=== PATIENT | female | born 1990 | race Two or more races ===

== ENCOUNTER 2023-08-19 22:36 | Emergency (ER) | payer OTHER, SELFPAY ==
--- NOTE | ~2023-08-19 | US_ITS ---
EXAMINATION: US ABDOMEN LIMITED CLINICAL INFORMATION: Upper abdominal pain, question cholecystitis. COMPARISON: None available. TECHNIQUE: Real-time imaging of the right upper quadrant abdominal viscera. FINDINGS: PANCREAS: Visualized pancreas is unremarkable. LIVER: The liver is normal in size. The liver contour is normal. Mildly increased liver parenchymal echogenicity. No focal hepatic lesion. No clear intrahepatic biliary ductal dilatation. GALLBLADDER: There are gallstones present. No gallbladder wall thickening or pericholecystic fluid. COMMON BILE DUCT: Normal in caliber measuring 0.5 cm in diameter. RIGHT KIDNEY: Normal. No hydronephrosis. No renal calculi or focal parenchymal lesions. The kidney measures 10.7 cm in maximum dimension. FREE FLUID: None. US/US abdomen limited IMPRESSION: Cholelithiasis.
[2023-08-19 22:38] VITALS: BP 148/100; PULSE 84; RESP 18; TEMP 36.7; O2SAT 98; BMI 31.6
[2023-08-19 22:53] LABS: MANUAL DIFF FLAG NO
[2023-08-19 22:56] LABS: Basophils Percent Auto 0.4 % (0-2); Eosinophils Absolute Auto 0.1 X10*3/uL (0.0-0.4); Hematocrit 41.3 % (37.0-47.0); Hemoglobin 13.2 g/dl (12.0-16.0); Imm Gran Abs Auto 0.03 X10*3/uL (0.00-0.03); Imm Gran Pct Auto 0.3 % (0.0-0.4); Lymphocytes Absolute Auto 3.7 X10*3/uL (1.2-4.9); Lymphocytes Percent Auto 38.3 % (20-40); Mean Corpuscular Volume 81.3 fL (80.0-98.0); Mean Platelet Volume 9.2 fL (9.4-12.3); Monocytes Absolute Auto 0.9 X10*3/uL (0.1-1.2); Monocytes Percent Auto 9.4 % (2-11); Neutrophils Absolute Auto 4.8 x10*3/uL (2.0-8.3); Neutrophils Percent Auto 50.6 % (45-73); Platelet Count 352 X10*3/uL (160-400); Red Blood Count 5.08 X10*6/uL (4.20-5.50); White Blood Count 9.6 X10*3/uL (4.8-10.8)
--- NOTE | 2023-08-19 23:06 | ED_ITS ---
HPI - Abdominal Pain General Chief Complaint: Abdominal Pain Stated Complaint: Stomach pain/nauseus Time Seen by Provider: 08/19/23 23:06 Source: patient Mode of arrival: ambulatory Limitations: no limitations History of Present Illness HPI narrative: Patient Been nauseated and vomiting all day with upper pain got worse prior to arrival no diarrhea no history of gallstones pain is mostly in epigastric area no history of similar pain in the past no history of gallstones patient had a C- section 3 months ago no other family member sick no history of any bad food intake Related Data Previous Rx's Medication Instructions Recorded ibuprofen 600 mg tablet 600 mg PO Q6H PRN fever or pain 08/20/23 #30 tabs ondansetron 4 mg disintegrating 4 mg PO Q6-8H PRN nausea and 08/20/23 tablet vomiting #7 tabs Allergies Allergy/AdvReac Type Severity Reaction Status Date / Time Sulfa (Sulfonamide Allergy Rash Verified 08/19/23 22:42 Antibiotics) Review of Systems Review of Systems Yes all other systems are reviewed and are negative [facility] [place] Social History Social History Alcohol intake: never Smoked in Last 30 Days: No Use of substances other than those prescribed or required for medical reasons: No Advance Directives: No Advance Directives Information Provided: No Patient : No Physical Exam ED Vital Signs: Vital Signs - 24 hr 08/19/23 22:38 08/19/23 23:57 Temperature 98.0 F Pulse Rate 84 82 Respiratory Rate 18 16 Blood Pressure 148/100 H 116/83 Pulse Oximetry 98 98 Oxygen Delivery Method Room Air Room Air BMI result Body Mass Index 31.6 Appearance: Alert. Oriented X3. Actively vomiting Eyes: No pallor or icterus ENT: Pharynx normal. Oral Mucosa moist Neck: Normal inspection. Neck supple. CVS: Normal heart rate and rhythm. Pulses normal. Respiratory: No respiratory distress. Equal air entry bilateral, no wheezing/rales/rhonchi Abdomen: Soft, tenderness in epigastric area Bowel sounds are present, no mass palpable, no CVA tenderness Skin: Skin warm and dry. Normal skin color. Normal skin turgor. Extremities: No lower extremity edema. No calf tenderness Neuro: Oriented X 3. Medical Decision Making Medical Decision Making MDM Narrative: Patient with nausea vomiting upper abdominal pain possible gastritis/gallstone Labs are stable ultrasound showed multiple gallstones without any obstruction or cholecystitis finding at this time patient is feeling much better will discharge patient home advised to follow with surgeon Differential Diagnosis Differential Diagnoses: The differential diagnosis associated with the presentation includes Acute gastritis/gallstones/cholecystitis Lab Data MDM Lab Attestation statement: I reviewed the patient's lab results. 08/19/23 22:48 08/19/23 22:48 Labs: Lab Results 08/19/23 08/20/23 Range/Units 22:48 00:19 WBC 9.6 (4.8-10.8) X10*3/uL RBC 5.08 (4.20-5.50) X10*6/uL Hgb 13.2 (12.0-16.0) g/dl Hct 41.3 (37.0-47.0) % MCV 81.3 (80.0-98.0) fL MCH 26.0 L (27.0-33.0) pg MCHC 32.0 (31.0-35.0) g/dl RDW 14.0 (11.0-16.0) % Plt Count 352 (160-400) X10*3/uL MPV 9.2 L (9.4-12.3) fL Immature Gran % (Auto) 0.3 (0.0-0.4) % Neut % (Auto) 50.6 (45-73) % Lymph % (Auto) 38.3 (20-40) % [place] % (Auto) 9.4 (2-11) % Eos % (Auto) 1.0 (0-4) % Baso % (Auto) 0.4 (0-2) % Lymph # (Auto) 3.7 (1.2-4.9) X10*3/uL [place] # (Auto) 0.9 (0.1-1.2) X10*3/uL Eos # (Auto) 0.1 (0.0-0.4) X10*3/uL Baso # (Auto) 0.0 (0.0-0.2) X10*3/uL Abs Immat Gran (auto) 0.03 (0.00-0.03) X10*3/uL Absolute Neuts (auto) 4.8 (2.0-8.3) x10*3/uL Absolute Nucleated RBC 0.000 (0.0-0.012) X10*3/uL Nucleated RBC % (auto) 0.0 (0.0-0.2) /100WBC Sodium 141 (135-145) mmol/L Potassium 4.2 (3.3-5.1) mmol/L Chloride 101 (96-108) mmol/L Carbon Dioxide 30 H (22-29) mmol/L Anion Gap 14 (12-20) BUN 14 (9-16) mg/dL Creatinine 0.82 (0.5-1.4) mg/dL Estim Creat Clear Calc 105.7 Estimated GFR > 60 Random Glucose 96 (60-115) mg/dL Calcium 9.9 (8.4-10.2) mg/dL Total Bilirubin 0.2 (0.0-1.0) mg/dL Direct Bilirubin < 0.2 (0.0-0.5) mg/dL AST 28 (5-31) U/L ALT 43 H (0-31) U/L Alkaline Phosphatase 177 H (39-117) U/L Total Protein 8.2 H (6.5-8.0) g/dL Albumin 4.1 (3.5-5.0) g/dL Lipase 30 (8-78) U/L Urine Color Yellow Urine Appearance Clear Urine pH 5.5 (5.0-9.0) Ur Specific [place] >= 1.030 H (1.005-1.025) Urine Protein Trace (Neg-Trace) mg/dL Urine Glucose (UA) Negative (Negative) mg/dL Urine Ketones Trace (Negative) mg/dL Urine Blood Negative (Negative) Urine Nitrite Negative (Negative) Ur Leukocyte Esterase Negative (Negative) Urine RBC 0-2 (0-2) /HPF Urine WBC 0-5 (0-5) /HPF Ur Squamous Epith Cells 3-5 (0-2) /HPF Urine Bacteria None Seen (None Seen) Hyaline Casts 0-2 (0-2) /LPF Urine Test NEGATIVE (NEGATIVE) Independent Interpretation I performed an independent interpretation of an: Ultrasound Interpretation: [address] [address] Ultrasound Report Signed Patient: Shikha Mota MR#: [id number] : 1990 Acct:[id number] Age/Sex: 32 / F ADM Date: 08/19/23 Loc: HO.ED Attending Dr: Ordering Physician: Dylan Richardson MD Date of Service: 08/19/23 Procedure(s): US abdomen limited Accession Number(s): [id number] cc: Cash Taylor MD; Dylan Richardson MD~ EXAMINATION: US ABDOMEN LIMITED CLINICAL INFORMATION: Upper abdominal pain, question cholecystitis. COMPARISON: None available. TECHNIQUE: Real-time imaging of the right upper quadrant abdominal viscera. FINDINGS: PANCREAS: Visualized pancreas is unremarkable. LIVER: The liver is normal in size. The liver contour is normal. Mildly increased liver parenchymal echogenicity. No focal hepatic lesion. No clear intrahepatic biliary ductal dilatation. GALLBLADDER: There are gallstones present. No gallbladder wall thickening or pericholecystic fluid. COMMON BILE DUCT: Normal in caliber measuring 0.5 cm in diameter. RIGHT KIDNEY: Normal. No hydronephrosis. No renal calculi or focal parenchymal lesions. The kidney measures 10.7 cm in maximum dimension. FREE FLUID: None. US/US abdomen limited IMPRESSION: Cholelithiasis. Radiology Impression Discussion of test interpretation with radiology: I have reviewed the radiologist's reading. Medications Administered Discontinued Medications Generic Name Dose Route Start Last Admin Trade Name Freq PRN Reason Stop Dose Admin Sodium Chloride 1,000 mls @ 999 mls/hr 08/19/23 23:10 08/20/23 01:01 Ns IV 08/20/23 00:10 Infused .Q1H1M ONE Infusion Morphine Sulfate 4 mg 08/19/23 23:10 08/19/23 23:59 Morphine Sulfate 4 Mg/Ml Cartridge IVPUSH 08/19/23 23:11 Not Given ONCE ONE Protocol Ondansetron HCl 4 mg 08/19/23 23:10 08/19/23 23:57 Ondansetron Hcl 4 Mg/2 Ml Vial IVPUSH 08/19/23 23:11 4 mg ONCE ONE Administration Discharge Plan Discharge Clinical Impression: Cholelithiasis, Vomiting Patient Disposition: Home, Self-Care Instructions: Gallstones (ED), Acute Nausea and Vomiting (ED) Additional Instructions: Drink plenty of fluids Avoid fatty foods Take Tylenol/ibuprofen for pain Follow-up with surgeon Report to ER if recurrence of pain Prescriptions: New ibuprofen 600 mg tablet 600 mg PO Q6H PRN (Reason: fever or pain) Qty: 30 0RF ondansetron 4 mg tablet,disintegrating 4 mg PO Q6-8H PRN (Reason: nausea and vomiting) Qty: 7 0RF Referrals: Aiedn Clark MD [Physician] - 1 week
[2023-08-19 23:10] LABS: Alanine Aminotransferase 43 U/L (0-31); Albumin Level 4.1 g/dL (3.5-5.0); Alkaline Phosphatase 177 U/L (39-117); Anion Gap 14 (12-20); Aspartate Amino Transferase 28 U/L (5-31); Bilirubin Direct < 0.2 mg/dL (0.0-0.5); Bilirubin Total 0.2 mg/dL (0.0-1.0); Blood Urea Nitrogen 14 mg/dL (9-16); Calcium 9.9 mg/dL (8.4-10.2); Carbon Dioxide 30 mmol/L (22-29); Chloride 101 mmol/L (96-108); Creatinine Clr Calc Pharmacy 105.7; Estimated Glomerular Filt Rate > 60; Glucose Random 96 mg/dL (60-115); Lipase 30 U/L (8-78); Potassium 4.2 mmol/L (3.3-5.1); Sodium 141 mmol/L (135-145); Total Protein 8.2 g/dL (6.5-8.0)
[2023-08-19 23:57] VITALS: BP 116/83; PULSE 82; RESP 16; O2SAT 98
[2023-08-19] MEDS: 0.9 % Sodium Chloride 1,000 ML 999 ML IV (23:57)
[2023-08-19] MEDS: ondansetron HCL 4 MG/2 ML VIAL IVPUSH (23:57)
[2023-08-20 00:31] LABS: Appearance Urine Clear; Color Urine Yellow; Glucose Urine UA Negative (Negative); Leukocyte Esterase Urine Negative (Negative); Nitrite Urine Negative (Negative); PH 5.5 (5.0-9.0); Specific Gravity - Urine >= 1.030 (1.005-1.025); Urine Blood Negative (Negative); Urine Ketones Trace mg/dL (Negative); Urine Protein Trace mg/dL (Neg-Trace)
[2023-08-20 00:32] LABS: UPreg QC Valid YES; Urine Pregnancy NEGATIVE (NEGATIVE)
[2023-08-20 00:33] LABS: Bacteria Urine None Seen (None Seen); Hyaline Casts Urine 0-2 /LPF (0-2); RBC Urine 0-2 /HPF (0-2); WBC Urine 0-5 /HPF (0-5)
--- NOTE | 2023-08-20 00:34 | PC.NURSE ---
Pt A&Ox4, reports 2/10 RUQ ABD pain, N/V today. States pain worsens with eating. IV line established meds given per OCT. Pt refused pain medication states she is breast feeding.
[2023-08-20] MEDS: Ketorolac Tromethamine 30 MG/ML VIAL IVPUSH (01:12)
== END 2023-08-20 01:20 | disposition home or self-care (01) ==
PROVIDERS: Emergency Provider Internal Medicine; PCP Internal Medicine
DX: K80.20 Calculus of gallbladder without cholecystitis without obstruction (principal); R11.2 Nausea with vomiting, unspecified; R10.2 Pelvic and perineal pain; Z79.899 Other long term (current) drug therapy
CPT/HCPCS: 36415; 76705; 80053; 81001; 81025; 82248; 83690; 85025; 96361; 96374; 96375; 99284; 99285; J1885; J2405

== ENCOUNTER 2023-08-20 13:54 | Outpatient (AMB) | payer OTHER, SELFPAY ==
--- NOTE | 2023-08-20 13:57 | A.OFFVIS_ITS ---
Intake Vital Signs 08/20/23 14:03 Height 5 ft 5 in Weight 194 lb BMI 32.3 BP 103/61 Blood Pressure Location Rt brachial Position Sitting Pulse 70 Intake Visit Reasons: gallstones Intake Note: This patient presents for an assessment for Cholelithiasis. Patient c/o; reports nausea and vomiting, reports stabbing pains, reports unable to eat, reports recently had a baby and is breast feeding needs to be able to eat to increase breast milk supply, reports one episode where she felt like she was going to pass out due to pain. Bookstore Clerk Required: No Accompanied by: Spouse Allergies Sulfa (Sulfonamide Antibiotics) Allergy (Verified 08/20/23 14:09) Rash Medication List - Last Reviewed 08/20/23 by JAMIE Moreno ibuprofen 600 mg PO Q6H PRN ondansetron 4 mg PO Q6-8H PRN vit [id number] 27 mg iron- 800 mcg ( Vitamin) 1 tab PO DAILY HPI gallstones HPI Details [age] year old female referred for gallstones. She apparently went to the ER last night because of epigastric pain and nausea. This improved on his own while she was in the emergency room so she was discharged from the ER. She does describe the pain last night as being on the right upper quadrant as well, radiating to the right shoulder and the back. She had an ultrasound done showing gallstones without cholecystitis. Her WBC was normal. Her LFTs were unremarkable She does state that she continues to have some degree of pain and this gets worse with meals. She had delivered her baby 3 months ago. This was done by a because of the size of the baby and breech presentation at that time. She says she had gestational diabetes but this has improved since that time. ON LICENSE OF [facility] Medical History (Updated 08/20/23 @ 14:15 by Aiden Clark MD) Cholelithiasis Surgical History (Updated 08/20/23 @ 14:18 by Aiden Clark MD) Status post No pertinent past surgical history Social History Alcohol intake: never Patient Tobacco Use Status: Never used Tobacco Review of Systems Const Denies chills and Denies fever(s) Card Denies chest pain, Denies dyspnea and Denies dyspnea on exertion Resp Denies cough, Denies dyspnea and Denies dyspnea on exertion GI Denies hematochezia and Denies change in bowel habits Denies hematuria Musc Denies back pain and Denies limited range of motion Neuro Denies focal weakness and Denies convulsions Psych Denies depression and Denies mood swings Physical Exam Vital Signs: Last Vital Signs Pulse 70 08/20/23 14:03 BP 103/61 08/20/23 14:03 BMI result Body Mass Index 32.3 Const General: comfortable and no acute distress Orientation/consciousness: patient oriented x3 Neck Neck: Yes no lymphadenopathy Resp Auscultation: clear to auscultation bilaterally Cardio Rhythm: regular rhythm GI Other: No Newton's sign, mild right upper quadrant tenderness noted Palpation (GI): Soft to palpation, Tenderness to palpation present (GI) and no guarding Neuro General: patient oriented x3 Assessment & Plan Assessment & Plan (1) Cholelithiasis: Code(s): K80.20 - Calculus of gallbladder without cholecystitis without obstruction Plan: She went to the ER last night because of epigastric pain, right upper quadrant pain along with nausea and vomiting. Her ultrasound does show gallstones without cholecystitis . Her LFTs were normal. She had no leukocytosis. She says that she continues to have pain whenever she eats and has had poor oral intake since last night. I reviewed with her the option of proceeding with cholecystectomy. I described the technique of laparoscopic cholecystectomy as well as possible open cholecystectomy. I discussed the risks including but not limited to bleeding, infections, injury to other organs including bowel, liver and the bile ducts, bile leak, retained stones, as well as the benefits and alternatives. In view of her persistent symptoms, we have added her onto the OR schedule for tomorrow. She wants to proceed. Coding Level of Care Code New Pt Level 3 (92987) Diagnoses Cholelithiasis K80.20
[2023-08-20 14:03] VITALS: BP 103/61; PULSE 70; BMI 32.3
== END 2023-08-20 14:12 | disposition home or self-care (01) ==
PROVIDERS: PCP Internal Medicine; Visit Provider Surgery
DX: K80.20 Calculus of gallbladder without cholecystitis without obstruction (principal)
CPT/HCPCS: 99203

== ENCOUNTER → 2023-08-20 13:54 | Outpatient (BNVA) | payer OTHER, SELFPAY | PROVIDERS: PCP Internal Medicine; Visit Provider Surgery | DX: K80.20 Calculus of gallbladder without cholecystitis without obstruction (principal) | CPT/HCPCS: 99202 ==

== ENCOUNTER 2023-08-21 12:10 | Day surgery (SDC) | payer OTHER, SELFPAY ==
[2023-08-21] VITALS (12 sets, daily range): BP systolic 108–154; BP diastolic 48–86; PULSE 60–84; RESP 14–25; TEMP 36.4–36.6; O2SAT 95–99; BMI 32.5
[2023-08-21] MEDS: Lactated Ringers 1,000 ML 80 ML IVCONT (12:41)
--- NOTE | 2023-08-21 13:21 | MHC.SHP ---
Pre-Procedural Eval Section A Date of Service: 08/21/23 The patient is an INPATIENT: No Changes since office visit: No Cold of Flu in the past 2 weeks, No New Medical Problems, No Changes in Medication and No Patient answered all questions The History & Physical has been completed within 30 days and I have reviewed it.: Yes Section B Chief Complaint: Calculus of gallbladder without cholecystitis with Allergies: Allergies Allergy/AdvReac Type Severity Reaction Status Date / Time Sulfa (Sulfonamide Allergy Rash Verified 08/20/23 14:09 Antibiotics) Plan I have reviewed the history and physical and performed a pertinent physical examination on my patient. No changes have occurred unless specified. Time Spent With Patient Time: Total time managing care of this patient today ____ minutes.
--- NOTE | 2023-08-21 13:59 | HO.ANESPROP2 ---
HPI - Anesthesia Eval Consult details Narrative: 32 f lap cholshanell PMFSH Active Problems Active Problems: All Active Problems (Updated 08/21/23 @ 00:00 by Syed Altamirano) Status post (Acute) Past Medical History Medical History Cholelithiasis Family History Family history of problems with anesthesia: No Surgical History Surgical History Status post No pertinent past surgical history History of Problems with Anesthesia: No Social History Social History Alcohol intake: never Patient Tobacco Use Status: Never used Tobacco Are you DNR?: No Advance Directives: No Advance Directives Information Provided: Yes Nutrition Risks: No Nutritional Risk Meds Allergies Allergy/AdvReac Type Severity Reaction Status Date / Time Sulfa (Sulfonamide Allergy Rash Verified 08/20/23 14:09 Antibiotics) Active Medications: Current Medications Lactated Ringer's (Lr) 1,000 mls @ 80 mls/hr IVCONT .[id number] NOEMY Last Admin: 08/21/23 12:41 Dose: 80 mls/hr Home Medications Medication Instructions Recorded Confirmed Last Taken Type vits no.130-ferrous fum 1 tab PO DAILY 08/20/23 Unknown History 27 mg iron-folic acid 800 mcg tablet ( Vitamin) Exam Height,Weight and Vital Signs: Height 5 ft 5 in Weight 195 lb 3.2 oz Last Vital Signs Temp 97.9 F 08/21/23 12:43 Pulse 72 08/21/23 12:43 Resp 18 08/21/23 12:43 BP 110/73 08/21/23 12:43 Pulse Ox 96 08/21/23 12:43 O2 Del Method Room Air 08/21/23 12:43 Airway Mallampati Class: II TM Dist: >3cm Neck ROM: Full Loose/Missing/Broken Teeth: Yes Assessment and Plan Assessment Anesthesia Assessment: Anesthesia Plan Discussed and Chart Reviewed Final Anesthetic Review Family History of Problems with Anesthesia: No History of Problems with Anesthesia: No NPO: Yes ASA Class: II Final Preanesthetic Review: No Changes in Pt Med Stat, Meds/Allgs Chart Reviewed, Consent Obtained/Reviewed and Anes Risks/Benef Reviewed Patient Risk: Low Procedure Risk: Low Anesthetic Plan Anesthetic Plan: GA Disposition: Standard PACU
--- NOTE | 2023-08-21 14:24 | W.PM.OPN ---
Operative Note Operative Note Date of Service: 08/21/23 Narrative: Preop diagnosis: Gallstones with symptoms Postop diagnosis: The same Procedure: Laparoscopic cholecystectomy Surgeon: Aiden Clark MD veterinary assistant technician: NOHEMI Headley The patient is a 32-year-old female who was seen in the office because of stones. She went to the ER the night before because of severe right upper quadrant pain and tenderness. She was discharged from the ER but she states that she still had significant pain whenever she had oral intake. She saw me in the office yesterday and wanted to proceed with cholecystectomy as soon as possible because of her symptoms. She understood the technique of the planned procedure as well as the risks, benefits, and alternatives She was brought to the operating room. She was placed supine under general anesthesia via endotracheal tube. The abdomen was prepped nd draped in the usual sterile fashion. A surgical time-out was done. The patient received Cefotan 2 g IV preoperatively I made a supraumbilical incision on the skin using blade 15. This was carried down through the full-thickness of the skin and subcutaneous fat down to the fascia. The fascia was incised. The peritoneum was entered. Through this incision a Kezia port was introduced. Pneumoperitoneum was introduced to a pressure of 15 mm hg. From here on the rest of the procedure was done under vision with jasvir 10 mm laparoscope. With laparoscopic visualization I inserted a 5/12 mm port in the epigastric area below the subcostal margin. Two 5 mm ports introduced a small incisions below the subcostal margin along the anterior axillary line and midclavicular line. Graspers were placed through these working ports. The patient was placed in head-up and [id number] position. With laparoscopic visualization, I was able to apply a grasper at the fundus of the gallbladder. This was used to retract the gallbladder cephalad. Another grasper was applied at the pouch of the gallbladder and used to retract the gallbladder laterally. At this point therefore the gallbladder was being retracted in a cephalad and lateral fashion. The gallbladder with did not appear to be inflamed. This was supple. I proceeded to gently dissect the neck of the gallbladder using the [place] dissector to remove fibro areolar tissue until I was able to visualize the cystic duct. I continued to dissect the cystic duct until this was clearly seen. This allowed me to see its confluence with the neck of the gallbladder. By doing so we were also able to achieve a critical view of the hepatocystic triangle. I could see what appeared to be the cystic artery running alongside the cystic duct. There were no other structures in the area. With the confluence of the cystic duct with the neck of the gallbladder confirmed, I proceeded to apply clips on the cystic duct, with 2 clips being applied distally. The cystic duct was transected between clips with Endo scissors. I continued to then define the cystic artery. I then proceeded to apply clips as well in the same fashion. The cystic artery was transected between clips with Endo scissors The gallbladder retracted away from the liver bed. I proceeded to use the electrocautery spatula to divide across the hilum. I incised the peritoneum of the gallbladder at the interface with the liver bed using the electrocautery spatula. Proceeded to define a plane of dissection along this incision using a combination of sharp dissection with electrocautery as well as blunt dissection with the tip. I the gallbladder off of the liver bed along this well-defined plane. We continue with this dissection until the entire gallbladder was completely from the liver bed. There was note of a little bit of bile leak from a tear in the gallbladder wall. I retrieved the gallbladder through an endobag through the umbilical incision. The liver bed was examined carefully. There was no signs of any bleeding or any bile leak I observed all 4 quadrants of the peritoneum. There was no other pathology seen or any evidence of bowel injury. I reabsorbed the area of dissection. Once hemostasis was confirmed, I desufflated the port sites. I removed all ports under vision with the laparoscope. I removed the umbilical port last. The fascia of the umbilical incision was closed with a [id number] Dexon 0 stitch. Skin closure was achieved on all incisions using Polysorb 4-0 subcuticular running sutures. Steri-Strips and dressings were applied. All incisions were infiltrated with Marcaine 0.5% for postop analgesia. The procedure was then completed. The patient tolerated procedure well. There were no immediate complications. Initial and final counts of sponges and instruments were correct. Estimated blood loss was less than 25 cc. The patient was extubated without difficulty and transferred to the recovery room with stable vital signs.
[2023-08-21] MEDS: HYDROmorphone HCl 0.5 MG/0.5 ML SYRINGE 0.25 MG IVPUSH ×4 (14:35→14:50)
[2023-08-21] MEDS: Acetaminophen 1,000 MG/100 ML PIGGYBACK 400 MG IV (14:41)
[2023-08-21] MEDS: oxyCODONE HCl Immed Release 5 MG TABLET PO (14:46)
[2023-08-21] MEDS: HYDROmorphone HCl 0.5 MG/0.5 ML SYRINGE IVPUSH ×2 (14:55→15:20)
[2023-08-21] MEDS: ondansetron HCL 4 MG/2 ML VIAL IVPUSH (15:04)
[2023-08-21] MEDS: LORazepam 2 MG/ML VIAL 1 MG IVPUSH (15:19)
== END 2023-08-21 16:33 | disposition home or self-care (01) ==
PROVIDERS: PCP Internal Medicine; Visit Provider Surgery
PROC: 0FT44ZZ Resection of Gallbladder, Percutaneous Endoscopic Approach (ICD-10-PCS; CPT 47562; principal; 2023-08-21 13:30)
DX: K80.10 Calculus of gallbladder with chronic cholecystitis without obstruction (principal); Z79.899 Other long term (current) drug therapy; Z88.2 Allergy status to sulfonamides
CPT/HCPCS: 47562; 88304; J0131; J1100; J1170; J2060; J2405; J2550; J2704; J2795; J3010

== ENCOUNTER → 2023-08-21 12:10 | Outpatient (BNV) | payer OTHER, SELFPAY | PROVIDERS: PCP Internal Medicine; Visit Provider Surgery | DX: K80.20 Calculus of gallbladder without cholecystitis without obstruction (principal) | CPT/HCPCS: 47562 ==

== ENCOUNTER 2023-09-04 13:01 | Outpatient (AMB) | payer OTHER, SELFPAY ==
--- NOTE | 2023-09-04 13:03 | A.OFFVIS_ITS ---
Intake Vital Signs 09/04/23 13:13 BP 102/59 L Blood Pressure Location Rt brachial Position Sitting Pulse 80 Intake Visit Reasons: S/P lap ridge Intake Note: This patient presents for a post-op assessment status post laparoscopic cholecystectomy. Patient c/o; reports diarrhea, reports hair loss s/p lap ridge not sure if it related to surgery or . Insulation Hoseman Required: No Accompanied by: Self / Same As Patient Allergies Sulfa (Sulfonamide Antibiotics) Allergy (Verified 09/04/23 13:15) Rash HPI S/P lap ridge HPI Details She underwent laparoscopic cholecystectomy last 02/18/2023 as an outpatient. She tolerated procedure well. She currently feels well and denies significant pain. She has good oral intake. [facility] Medical History (Updated 09/04/23 @ 13:19 by Aiden Clark MD) Cholelithiasis Surgical History History of laparoscopic cholecystectomy (~08/21/23) Status post No pertinent past surgical history Social History Alcohol intake: never Comment: counts correct Patient Tobacco Use Status: Never used Tobacco Review of Systems Const Denies chills and Denies fever(s) Card Denies chest pain, Denies dyspnea and Denies dyspnea on exertion Resp Denies cough, Denies dyspnea and Denies dyspnea on exertion GI Denies hematochezia and Denies change in bowel habits Denies hematuria Musc Denies back pain and Denies limited range of motion Neuro Denies focal weakness and Denies convulsions Psych Denies depression and Denies mood swings Physical Exam Vital Signs: Last Vital Signs Pulse 80 09/04/23 13:13 BP 102/59 L 09/04/23 13:13 Const Other: Looks well General: comfortable and no acute distress Eyes Other: Nonicteric GI Other: All incisions are well healed Palpation (GI): Soft to palpation, not firm, nontender and no guarding Assessment & Plan Assessment & Plan (1) Cholelithiasis: Code(s): K80.20 - Calculus of gallbladder without cholecystitis without obstruction Plan Status post laparoscopic cholecystectomy. She is doing very well postoperat ively. She has good oral intake. Her incisions are well healed. I advised her to avoid lifting anything more than 20 lb for at least 2 more weeks She can follow up on a p.r.n. basis. Coding Level of Care Code Global (88537) Diagnoses Cholelithiasis K80.20
[2023-09-04 13:13] VITALS: BP 102/59; PULSE 80
== END 2023-09-04 13:27 | disposition home or self-care (01) ==
PROVIDERS: PCP Internal Medicine; Visit Provider Surgery
DX: K80.20 Calculus of gallbladder without cholecystitis without obstruction (principal)
CPT/HCPCS: 99024

== ENCOUNTER → 2023-09-04 13:01 | Outpatient (BNVA) | payer OTHER, SELFPAY | PROVIDERS: PCP Internal Medicine; Visit Provider Surgery | DX: Z09 Encounter for follow-up examination after completed treatment for conditions other than malignant neoplasm (principal); Z98.890 Other specified postprocedural states; Z87.19 Personal history of other diseases of the digestive system | CPT/HCPCS: 99212 ==